=== PATIENT | female | born 1975 | race Two or more races ===

== ENCOUNTER 2023-03-11 08:09 | Emergency (ER) | payer SELFPAY ==
[~2023-03-11] VITALS: Ht 165.1 cm; Wt 49.0 kg
[2023-03-11 09:38] VITALS: BP 146/94; TEMP 98.8; O2SAT 100
== END 2023-03-11 09:39 | disposition left against medical advice (07) ==
LOC: ER 08:24
DX: R14.0 Abdominal distension (gaseous) (principal); R10.9 Unspecified abdominal pain; Z88.0 Allergy status to penicillin; Z88.2 Allergy status to sulfonamides; Z88.1 Allergy status to other antibiotic agents